=== PATIENT | male | born 1940 | race Caucasian/White ===

== ENCOUNTER → 2024-04-01 06:20 | Outpatient (REF) | payer MEDICARE, OTHER, SELFPAY ==
[2024-04-01 07:29] LABS: % Basophils 1.1 % (0-2); % Eosinophils 3.6 % (0-6); % Immature Granulocytes 0.3 % (0-0.5); % Lymphocytes 32.3 % (20.5-51.1); % Monocytes 9.7 % (1.7-9.3); Absolute Basophils 0.1 10^3/uL (0-0.2); Absolute Eosinophils 0.3 10^3/uL (0-0.7); Absolute Lymphocytes 2.3 10^3/uL (1.2-3.4); Absolute Monocytes 0.7 10^3/uL (0.1-0.6); Absolute Neutrophils 3.8 10^3/uL (1.4-6.5); Hematocrit 42.1 % (39.0-52.0); Hemoglobin 14.3 g/dL (13.0-18.0); Mean Corpuscular Hgb 30.6 pg (27.0-31.0); Mean Corpuscular Volume 90.1 fL (80.0-94.0); Mean Platelet Volume 10.5 fL (7.4-10.4); Nucleated Red Blood Cells % 0 % (-); Platelet Count 157 10^3/uL (130-400); Red Blood Cell Count 4.67 10^6/uL (4.70-6.10); Red Cell Dist. Width 13.9 % (11.5-14.5); White Blood Cell Count 7.2 10^3/uL (4.8-10.8)
[2024-04-01 08:03] LABS: ALT (SGPT) 20 U/L (0-50); AST (SGOT) 33 U/L (17-59); Albumin 4.2 g/dl (3.5-5.0); Alkaline Phosphatase 92 U/L (38-126); Blood Urea Nitrogen 22 mg/dl (9-20); Calcium 9.3 mg/dl (8.4-10.2); Carbon Dioxide 25 mmol/L (22-30); Chloride 104 mmol/L (98-107); Glucose 81 mg/dl (70-99); HDL Cholesterol 69 mg/dl; LDL Cholesterol, Calculated 159 mg/dl; Potassium 4.4 mmol/L (3.5-5.1); Sodium 140 mmol/L (135-145); Total Bilirubin 1.1 mg/dl (0.2-1.3); Total Cholesterol 245 mg/dl (50-199); Total Protein 6.6 g/dl (6.3-8.2); Triglyceride 88 mg/dl (10-149); Very Low Density Lipoprotein 17 mg/dl (0-30); eGFR > 60.00
== END ==
LOC: REG 06:20
PROVIDERS: ATTENDING PHYSICIAN Internal Medicine Cardiovascular Disease
DX: R07.9 Chest pain, unspecified (principal)
CPT/HCPCS: 36415; 80053; 80061; 85025

== ENCOUNTER → 2024-05-24 07:48 | Outpatient (REF) | payer MEDICARE, OTHER, SELFPAY | LOC: HWRCS 07:48 | PROVIDERS: ATTENDING PHYSICIAN Internal Medicine Cardiovascular Disease | DX: Z95.2 Presence of prosthetic heart valve (principal) | CPT/HCPCS: 93306 ==

== ENCOUNTER → 2025-05-26 12:27 | Outpatient (REF) | payer MEDICARE, OTHER, SELFPAY | LOC: HWRCS 12:27 | PROVIDERS: ATTENDING PHYSICIAN Internal Medicine Cardiovascular Disease; FAMILY PHYSICIAN Internal Medicine | DX: Z95.2 Presence of prosthetic heart valve (principal) | CPT/HCPCS: 93306 ==

== ENCOUNTER 2025-08-06 01:33 | Emergency (ER) | payer MEDICARE, OTHER, SELFPAY ==
[2025-08-06 01:48] VITALS: BP 127/70
[2025-08-06 02:00] VITALS: BP 123/77
[2025-08-06 02:05] VITALS: BMI 28.8
--- NOTE | 2025-08-06 02:10 | ED.GENMED ---
History of Present Illness
<Deonte Walls PA-C - Last Filed: 08/06/25 15:10>
General
Chief Complaint: Musculo-Skeletal Complaint
Time Seen by Provider: 08/06/25 01:56
History of Present Illness
History of Present Illness:
85-year-old male presents to the emergency department for evaluation of left-sided neck and upper shoulder pain for the past several days. Worse with any head or neck rotation as well as with movement of the left arm. Denies any injuries or
trauma. Has occasional pain radiating down toward the left forearm. Denies any numbness or weakness. No associated exertional chest pain or exertional shortness of breath. Has taken Tylenol without significant relief
Past History
<Deonte Walls PA-C - Last Filed: 08/06/25 15:10>
Past History
ED Past Medical History: Valvular disease () and Other (renal calc, gout); Negative HTN, Hypercholesterolemia, IDDM or NIDDM
ED Past Surgical History: Cardiac (AVR) and Urological
Social History
Tobacco: Non-smoker
Personal:
Living: with family
Employment: Retired
Review of Systems
<Deonte Walls PA-C - Last Filed: 08/06/25 15:10>
Review of Systems
Allergies reviewed?: Yes
All Other Systems: ROS reviewed and negative except as documented in HPI and ROS
Phy Exam
<Deonte Walls PA-C - Last Filed: 08/06/25 15:10>
Physical Exam
Physical Exam:
GEN: Well appearing, NAD, WDWN
HEENT: Oral mucosa moist, no scleral icterus
Cardiac: Regular rate and rhythm, systolic murmur compatible with known TAVR
Lung: No respiratory distress, no tachypnea, lungs clear
MSK: No gross deformity or injuries. Exquisite tenderness to the left paraspinous cervical musculature, rightward rotation elicits increased pain.
Skin: Good color, no pallor or jaundice, no rashes
Neuro: AO x3, moves all extremities freely, bilateral upper extremity strength and sensation 5 out of 5 in all campos and symmetric
Psych: Calm, cooperative
Course
<Deonte Walls PA-C - Last Filed: 08/06/25 15:10>
Orders/Labs/Results
Orders:
Orders
08/06/25 01:34
EKG [Electrocardiogram (*1)] Urgent
Reason for Study: Chest Pain
EKG- Treatment ONCE
08/06/25 02:04
Diazepam [Valium] 2 mg PO NOW STA
Ketorolac [Toradol] 30 mg IM NOW STA
08/06/25 03:20
Gabapentin [Neurontin] 300 mg PO NOW STA
Vital Signs
Initial and Last Documented VS:
Initial Vital Signs
Temp Pulse Resp BP Pulse Ox
99.2 F 87 16 127/70 94
08/06/25 01:48 08/06/25 01:48 08/06/25 01:48 08/06/25 01:48 08/06/25 01:48
Last Documented Vital Signs
Temp Pulse Resp BP Pulse Ox
99.2 F 83 21 98/63 95
08/06/25 03:47 08/06/25 03:47 08/06/25 03:47 08/06/25 03:47 08/06/25 03:47
<Jonathan Munoz DO - Last Filed: 08/06/25 03:29>
Orders/Labs/Results
Orders:
Orders
08/06/25 01:34
EKG [Electrocardiogram (*1)] Urgent
Reason for Study: Chest Pain
EKG- Treatment ONCE
08/06/25 02:04
Diazepam [Valium] 2 mg PO NOW STA
Ketorolac [Toradol] 30 mg IM NOW STA
08/06/25 03:20
Gabapentin [Neurontin] 300 mg PO NOW STA
Vital Signs
Initial and Last Documented VS:
Initial Vital Signs
Temp Pulse Resp BP Pulse Ox
99.2 F 87 16 127/70 94
08/06/25 01:48 08/06/25 01:48 08/06/25 01:48 08/06/25 01:48 08/06/25 01:48
Last Documented Vital Signs
Temp Pulse Resp BP Pulse Ox
99.2 F 83 21 98/63 95
08/06/25 03:47 08/06/25 03:47 08/06/25 03:47 08/06/25 03:47 08/06/25 03:47
<Deonte Walls PA-C - Last Filed: 08/06/25 15:10>
MDM/Problems Addressed
MDM/Problems Addressed:
Likely musculoskeletal/cervical disc disease, no clinical symptoms concerning for ACS/aortic aneurysm/dissection. Discussed supportive
<Deonte Walls PA-C - Last Filed: 08/06/25 15:10>
*Pulse Oximetry
SaO2: 94
Patient hypoxic: no
*Critical Care Note
Total Time (30-74mins, 75-104mins- exclusive of procedures): Not Applicable
ED Attending Note
<Deonte Walls PA-C - Last Filed: 08/06/25 15:10>
-
Portions of this chart may have been created with voice recognition software.� Occasional wrong word or��sound alike� substitutions may have occurred due to the inherent limitations of voice recognition software.
<Jonathan Munoz, - Last Filed: 08/06/25 03:29>
ED Attending Note
Patient seen and examined by attending physician: Yes
ED Attending Note:
I reviewed and agree with history treatment plan by Bertram Walls PA-C. My exam revealed 85-year-old male no acute distress, tender to palpation left trapezius, suspect cervical radiculopathy versus trapezius strain. Patient with improvement after IM
Toradol, will treat with gabapentin and Decadron, follow-up with pain management. Return precautions given. Do not suspect ACS, PE, vertebral or carotid artery dissection. Stable for discharge.
Discharge Plan
Departure
Patient Disposition: Home (Routine Discharge)
Date of Disposition: 08/06/25
Time of Disposition: 03:21
Patient with high blood pressure during this ER visit?: Yes
Discharge Problem:
Cervical radiculopathy
Instructions: Radiculopathy of the neck and back (including sciatica) (DC), BLOOD PRESSURE
Prescriptions:
New
methylprednisolone [Medrol (Angel)] 4 mg tablets,dose pack
See Rx Instructions .ROUTE .COMPLEX Qty: 21 0RF
Rx Instructions:
orally per package directions
gabapentin 300 mg capsule
300 mg PO TID Qty: 30 0RF
No Action
aspirin [Adult Aspirin Regimen] 81 MG tablet,delayed release (DR/EC)
81 mg PO DAILY Qty: 30 3RF
atorvastatin [Lipitor] 20 MG tablet
20 mg PO DAILY Qty: 90 3RF
magnesium [magnesium gluconate] 200 MG tablet
200 mg PO DAILY
fish oil-dha-epa 1 EACH capsule
1 ea PO DAILY
methylprednisolone [Medrol (Angel)] 4 mg tablets,dose pack
4 mg PO DAILY Qty: 21 0RF
Referrals:
Guido Buitrago MD [Active, Anesthesiology] - Call in 1-3 days for appt
Interventions
Interventions:
*General Assessment Last Done: 08/06/25 02:06
*Neglect/Abuse Screening Last Done: 08/06/25 02:08
*ED COVID-19 Vaccine History Last Done: 08/06/25 02:05
*ED Influenza Vaccine History Last Done: 08/06/25 02:05
[facility] Fall Risk Assessment Tool Last Done: 08/06/25 02:05
*Risk Screen - Suicide (C-SSRS) Last Done: 08/06/25 01:38
*Nursing Disposition Last Done: 08/06/25 03:47
ED-Musculoskeletal Assessment Last Done: 08/06/25 02:01
Discharge Date and Time
Discharge Date/Time: 08/06/25 03:48
Print Language: [place]
[2025-08-06] MEDS: VALIUM 2 MG PO (02:12)
[2025-08-06] MEDS: TORADOL 30 MG IM (02:12)
[2025-08-06 03:00] VITALS: BP 98/63
[2025-08-06] MEDS: NEURONTIN 300 MG PO (03:28)
[2025-08-06 03:47] VITALS: BP 98/63
== END 2025-08-06 03:48 | disposition home or self-care (01) ==
LOC: EMR 01:33
PROVIDERS: EMERGENCY PHYSICIAN Emergency Medicine
DX: M54.12 Radiculopathy, cervical region (principal); M25.512 Pain in left shoulder
CPT/HCPCS: 96372; 99284; 93005